=== PATIENT | female | born 2000 | race Caucasian/White ===

== ENCOUNTER 2023-02-23 17:27 | Emergency (ER) | payer MEDICAID ==
[~2023-02-23] VITALS: Ht 185.4 cm; Wt 131.8 kg
[2023-02-23 17:31] VITALS: TEMP 98.8
[2023-02-23] MEDS ORDERED: PRINIVIL10 MG PO (17:35)
[2023-02-23] MEDS ORDERED: GLUCOPHAGE1000 MG PO (17:35)
[2023-02-23] MEDS ORDERED: Promethazine 12.5 MG in NS 50 ML IV ONE (18:00)
[2023-02-23] MEDS ORDERED: NS 1,000 ML IV ONE (18:00)
[2023-02-23 18:10] LABS: BASO % 0.3 % (0.0-2.0); EOS # 0.1 K/mm3 (0.0-0.7); EOS % 0.7 % (0.0-4.0); GRAN # 6.3 K/mm3 (1.4-6.5); GRAN % 64.3 % (42.2-75.2); HEMATOCRIT 39.3 % (37.0-47.0); HEMOGLOBIN 12.5 g/dl (12.5-16.0); LYMPH # 2.9 K/mm3 (1.2-3.4); LYMPH % 29.6 % (20.0-51.0); MEAN CELL VOLUME 82 fl (80.0-100.0); MEAN CORPUSCULAR HEMOGLOBIN 26 pg (27-31); MEAN CORPUSCULAR HGB CONC 32 g/dl (33.0-37.0); MEAN PLATELET VOLUME 9.8 fl (7.4-10.4); MONO # 0.5 K/mm3 (0.1-0.6); MONO % 4.8 % (1.7-9.3); PLATELET COUNT 373 K/mm3 (130-400); RED BLOOD COUNT 4.78 M/mm3 (4.10-5.30); REDCELL DISTRIBUTION WIDTH-CV 14.1 % (11.5-14.5)
[2023-02-23 18:28] LABS: ALANINE AMINOTRANSFERASE 97 U/L (0-55); ALBUMIN 3.7 gm/dL (3.5-5.0); ALKALINE PHOSPHATASE 127 U/L (40-150); ANION GAP 12 mmol/L (7-16); AST,SGOT 78 U/L (5-34); BILIRUBIN,TOTAL 0.2 mg/dL (0.2-1.2); BLOOD UREA NITROGEN 11 mg/dL (7-19); C-REACTIVE PROTEIN 2.01 mg/dL (0.00-0.50); CALCIUM 9.3 mg/dL (8.4-10.2); CHLORIDE 105 mmol/L (98-107); CREATININE, serum 0.77 mg/dL (0.57-1.11); GLUCOSE 234 mg/dL (70-99); POTASSIUM 3.8 mmol/L (3.5-4.5); SODIUM 139 mmol/L (136-145); TOTAL PROTEIN 8.4 gm/dL (6.2-8.1)
[2023-02-23 18:35] LABS: TROPONIN-I < 0.010 ng/mL (0.00-0.033)
[2023-02-23] MEDS ORDERED: Ketorolac 30 MG/ML VIAL IV ONE (18:45)
[2023-02-23 19:22] VITALS: BP 120/70; PULSE 91
[2023-02-23] MEDS ORDERED: [UNRECOGNIZED DRUG - OTHER] PO ONE (19:30)
[2023-02-23] MEDS ORDERED: BUTALBITAL PO ONE (19:30)
[2023-02-23] MEDS ORDERED: CAFFEINE PO ONE (19:30)
[2023-02-23] MEDS ORDERED: ACETAMINOPHEN PO ONE (19:30)
== END 2023-02-23 19:37 | disposition home or self-care (01) ==
LOC: COL.ER 17:27
PROVIDERS: Emergency Medicine
DX: R51.9 Headache, unspecified (principal); I10 Essential (primary) hypertension; M54.2 Cervicalgia; R42 Dizziness and giddiness; R11.0 Nausea; E11.9 Type 2 diabetes mellitus without complications; Z79.84 Long term (current) use of oral hypoglycemic drugs
CPT/HCPCS: J1885; J2550; J7030